=== PATIENT | female | born 1990 | race Caucasian/White ===

== ENCOUNTER 2017-04-18 13:44 | Outpatient (RCR) | payer BC ==
[~2017-04-18] VITALS: Ht 167.6 cm; Wt 95.7 kg
[~2017-04-18 13:44] MED LIST: ADVIL200 MG PO; OSCAL 500 TAB500 MG PO; PERCOCET 325 MG1 TA2 PO; PHENERGAN 25 TA25 MG PO; PHENERGAN25 MG RC; PRENATAL PO
[2017-04-23] MEDS ORDERED: PERCOCET 325 MG1 TA2 PO (08:18)
[2017-04-23] MEDS ORDERED: IBU600 MG PO (08:18)
== END 2017-07-10 | disposition home or self-care (01) ==
LOC: LDRO → EDSTATUS 05-28 10:29 → LDRO 05-28 11:20
DX: O30.003 Twin pregnancy, unspecified number of placenta and unspecified number of amniotic sacs, third trimester (principal); Z3A.33 33 weeks gestation of pregnancy

== ENCOUNTER 2017-04-20 10:34 | Inpatient (IN) | payer BC ==
[~2017-04-20] VITALS: Ht 167.7 cm; Wt 95.9 kg
[2017-04-20] VITALS (21 sets, daily range): BP systolic 122–148; BP diastolic 62–89; PULSE 56–99; TEMP 97.4–98.1
[2017-04-20 11:43] LABS: MEAN CELL VOLUME 93 fl (80.0-100.0); MEAN CORPUSCULAR HGB CONC 34 g/dl (33.0-37.0); MEAN PLATELET VOLUME 12.1 fl (7.4-10.4); PLATELET COUNT 202 K/mm3 (130-400); RED BLOOD COUNT 3.71 M/mm3 (4.10-5.30); WHITE BLOOD COUNT 13.3 K/mm3 (4.8-10.8)
[2017-04-20 11:44] LABS: ADD PATHOLOGY DIFF REVIEW NO; HEMATOCRIT 34.3 % (37.0-47.0); HEMOGLOBIN 11.6 g/dl (12.5-16.0); MEAN CORPUSCULAR HEMOGLOBIN 31 pg (27.0-31.0)
[2017-04-20 12:16] LABS: BAND 19 % (0-10); EOSINOPHIL 1 % (0-4); METAMYELOCYTE 1 % (0-0); NEUTROPHILS 57 % (42.0-75.2); TOTAL CELLS COUNTED 100
[2017-04-20 12:18] LABS: PLATELET ESTIMATE NORMAL (NORMAL)
[2017-04-21 00:40] VITALS: BP 116/69; PULSE 71; TEMP 97.7
[2017-04-21 05:10] VITALS: BP 119/66; PULSE 68; TEMP 98.2
[2017-04-21 07:30] VITALS: BP 123/77; PULSE 57; TEMP 97.4
[2017-04-21 08:18] LABS: HEMATOCRIT 30.9 % (37.0-47.0); HEMOGLOBIN 10.3 g/dl (12.5-16.0)
[2017-04-21 13:00] VITALS: BP 125/76; PULSE 69; TEMP 97.6
[2017-04-21 16:30] VITALS: BP 131/74; PULSE 74; TEMP 98.4
[2017-04-21 21:00] VITALS: BP 121/70; PULSE 71; TEMP 97.5
[2017-04-22 07:24] VITALS: BP 120/64; PULSE 74; TEMP 98.3
[2017-04-22 16:08] VITALS: BP 142/84; PULSE 81; TEMP 97.3
[2017-04-22 20:45] VITALS: BP 137/78; PULSE 82; TEMP 98.8
[2017-04-23 08:03] VITALS: BP 149/73; PULSE 58; TEMP 97.5
[2017-04-23] MEDS ORDERED: IBU600 MG PO (08:18)
[2017-04-23] MEDS ORDERED: PERCOCET 325 MG1 TA2 PO (08:18)
== END 2017-04-23 15:15 | disposition home or self-care (01) | DRG 765 ==
LOC: LDRO 10:34 → LDR 10:40 → OB 14:00
PROVIDERS: Obstetrics & Gynecology
PROC: 10D00Z1 Extraction of Products of Conception, Low, Open Approach (ICD-10-PCS; principal; 2017-04-20)
DX: O60.14X1 Preterm labor third trimester with preterm delivery third trimester, fetus 1 (principal); O30.043 Twin pregnancy, dichorionic/diamniotic, third trimester; O60.14X2 Preterm labor third trimester with preterm delivery third trimester, fetus 2; O69.81X2 Labor and delivery complicated by cord around neck, without compression, fetus 2; Z3A.34 34 weeks gestation of pregnancy; Z37.2 Twins, both liveborn
CPT/HCPCS: J0690; J1885; J2175; J2270; J2370; J2405; J2540; J2590; J7120

== ENCOUNTER → 2017-05-19 | Outpatient (CLI) | payer BC ==
[~2017-05-19] MED LIST changes: +IBU600 MG PO
== END ==
LOC: OLC 13:42
DX: Z39.1 Encounter for care and examination of lactating mother (principal); Z71.89 Other specified counseling